=== PATIENT | male | born 1995 | race Two or more races ===

== ENCOUNTER 2020-01-17 09:07 | Day surgery (SDC) | payer SELFPAY ==
[2020-01-17] VITALS (10 sets, daily range): BP systolic 112–160; BP diastolic 68–99; PULSE 57–80; RESP 12–18; TEMP 36.1–37; O2SAT 97–100
--- NOTE | ~2020-01-17 | CT_ITS ---
EXAMINATION: CT abdomen pelvis w con DATE: 01/17/2020 09:53 INDICATION: Right lower quadrant abdominal pain. TECHNIQUE: Computed tomography (CT) of the abdomen and pelvis was performed with 100 mL Omnipaque 350 intravenous contrast. Automated exposure control and iterative reconstruction technique were employe d. The dose-length product was 448.65 mGy-cm. COMPARISON: None. FINDINGS: The visualized portions of the lung bases are clear without pneumonia or pleural effusion. The heart size is normal. No pericardial effusion. The liver, gallbladder, spleen, pancreas, adrenal glands, and kidneys are normal. The appendix is fluid-filled and dilated to 14 mm with wall thickenin g and surrounding fat stranding, consistent with appendicitis. There is a small volume of pelvic asci clarissa. There are no pathologically enlarged lymph nodes. There is mild lumbar spondylosis. IMPRESSION: 1. Acute appendicitis. 2. Small volume of pelvic ascites. Reviewed, dictated and finalized at location B. [employer]
[2020-01-17 09:26] LABS: Basophils Percent Auto 0.3 % (0.2-1.2); Eosinophils Absolute Auto 0.1 K/mm3 (0-0.3); Eosinophils Percent Auto 0.9 % (0-4.4); Hematocrit 45.5 % (42.0-52.0); Hemoglobin 15.8 g/dL (14.0-18.0); Immature Granulocyte Absolute 0.05 K/mm3 (0.00-0.031); Immature Granulocyte Percent A 0.3 % (0-0.5); Lymphocytes Absolute Auto 1.77 K/mm3 (0.9-3.2); Lymphocytes Percent Auto 12.1 % (18.3-44.2); Mean Corpuscular HGB Conc 34.7 g/dl (32-36); Mean Corpuscular Volume 86.3 fl (80-100); Mean Platelet Volume 10.4 fl (7.4-10.4); Monocytes Absolute Auto 0.7 K/mm3 (0.1-0.6); Monocytes Percent Auto 4.7 % (2.6-8.5); Neutrophils Percent Auto 81.7 % (45.5-73.1); Platelet Count Result 191 k/mm3 (150-375); Red Blood Count 5.27 M/mm3 (4.6-6.20); White Blood Count 14.6 K/mm3 (4.5-10.0)
[2020-01-17 09:38] LABS: Add Urine Microscopic? YES; Alanine Aminotransferase 33 U/L (4-50); Albumin Level 4.9 g/dL (3.5-5.1); Alkaline Phosphatase 64 U/L (38-126); Anion Gap 9 mmol/L (8-16); Appearance Urine Clear (Clear); Aspartate Amino Transferase 32 U/L (17-59); Bilirubin Urine Negative (Negative); Bilirubin,Total 0.8 mg/dL (0.2-1.3); Blood Urea Nitrogen 15 mg/dL (9-20); Blood Urine Negative (Negative); Calcium 9.6 mg/dL (8.4-10.2); Carbon Dioxide 30 mmol/L (22-30); Chloride 100 mmol/L (98-107); Color Urine Yellow (Yellow); Estimated CRCL calculation 122 ml/min; Estimated Glomerular Filt Rate > 60; Glucose 124 mg/dL (75-110); Glucose Urine UA Negative (Negative); Ketones Urine Trace mg/dL (Negative); Leukocyte Esterase Ur Negative LEU/UL (Negative); Lipase 20 U/L (23-300); Nitrate Urine Negative (Negative); Potassium 3.8 mmol/L (3.4-5.0); Protein Urine Negative (Negative); RBC Urine 0-2 /hpf (0-2); Sodium 139 mmol/L (137-145); Specific Grav Ur 1.019 (1.001-1.035); Urobilinogen Urine Negative mg/dL (<2.0); WBC Urine 0-3 /hpf
--- NOTE | 2020-01-17 09:46 | ED.ABDPAIN ---
HPI - Abdominal Pain General Chief Complaint: Abdominal Pain Stated Complaint: abd pain Time Seen by Provider: 01/17/20 09:29 Source: patient Mode of arrival: ambulatory Limitations: no limitations History of Present Illness HPI narrative: Patient presents with right lower quadrant pain that started last night associated with vomiting. The pain is intermittent, no aggravating or relieving factors, Patient denies any fever, chills, radiation of pain, history of abdominal surgery. MD elicited complaint: abdominal pain Related Data Home Medications Medication Instructions Recorded Confirmed No Home Medications 01/17/20 01/17/20 Allergies Allergy/AdvReac Type Severity Reaction Status Date / Time No Known Allergies Allergy Verified 01/17/20 09:24 Review of Systems Review of Systems: Narrative: CONSTITUTIONAL: Denies fever, chills, or sweats. EYES: Denies visual changes, redness, or discharge. ENT: Denies rhinorrhea, congestion, sore throat, or otalgia. CARDIOVASCULAR: Denies chest pain, palpitations, or edema. RESPIRATORY: Denies cough or dyspnea. GASTROINTESTINAL: Complaining of abdominal pain GENITOURINARY: Denies dysuria or hematuria. SKIN: Denies rash or itching. MUSCULOSKELETAL: Denies back pain, joint pain, or myalgia. NEUROLOGIC: Denies headache, numbness, or weakness. PSYCHIATRIC: Denies anxiety or depression. [facility] [place] Social History Social History Gender identity (if verbalized by the patient): Male Exam Narrative: Exam Narrative: General appearance: Well-developed, well-nourished, looks comfortable, significant other at the bedside Skin: Normal color Head: Normocephalic, nontraumatic Eyes: Clear conjunctiva ENT: Oropharynx normal, ears normal, nose normal Neck: Supple, nontender Chest and respiratory: Airway patent, no respiratory distress, no accessory muscle use Heart: Regular rate/rhythm Abdomen: Diffuse tenderness, guarding right lower quadrant Vascular: Normal peripheral pulses, normal capillary refill. 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, no gross motor deficit Course Course Emergency Course: Stable Consultations Consultation #1: DR LEMUS Date: 01/17/20 Time: 10:17 Vital Signs Vital signs: Vital Signs Temperature 36.1 C L 01/17/20 09:16 Pulse Rate 80 12/09/20 09:16 Respiratory Rate 18 01/17/20 09:16 Blood Pressure 160/84 H 01/17/20 09:16 Pulse Oximetry 99 01/17/20 09:16 Temperature 36.1 C L 01/17/20 09:16 Pulse Rate 80 01/17/20 09:16 Respiratory Rate 18 01/17/20 09:16 Blood Pressure 160/84 H 01/17/20 09:16 Pulse Oximetry 99 01/17/20 09:16 MDM - Abdominal Pain MDM Narrative Medical decision making narrative: Patient presents with right lower quadrant pain. Appendicitis, urinary tract infection, kidney stone are my concern. Labs, CT abdomen and pelvis with IV contrast, IV fluid ordered. Further plan to follow Differential Diagnosis Differential diagnosis: Likely abdominal pain, acute appendicitis, calculus of kidney, constipation and diverticulitis Lab Data Result diagrams: 01/17/20 09:20 01/17/20 09:20 Labs: Lab Results 01/17/20 01/17/20 01/17/20 Range/Units : 09:20 09:20 WBC 14.6 H (4.5-10.0) K/mm3 RBC 5.27 (4.6-6.20) M/mm3 Hgb 15.8 (14.0-18.0) g/dL Hct 45.5 (42.0-52.0) % MCV 86.3 (80-100) fl MCH 30.0 (26-34) pg MCHC 34.7 (32-36) g/dl RDW 12.0 (11.5-14.5) % Plt Count 191 (150-375) k/mm3 MPV 10.4 (7.4-10.4) fl Immature Gran % (Auto) 0.3 (0-0.5) %
[2020-01-17] MEDS: SODIUM CHLORIDE 0.9% IV 1,000 ML 999 ML IV CONT ×2 (09:54→10:49)
--- NOTE | 2020-01-17 10:27 | PM.SD ---
Same Day Admit/Disch: HPI History of Present Illness Chief complaint: abd pain Narrative: Venkat Adams is a 24 year old male who started having abdominal pain that moved to the right lower quadrant last night. He has had nausea and some vomiting. He came to the emergency room where he was noted to have tenderness in the right lower quadrant. He was afebrile [place] [id number] scan showed a 14 mm appendix with evidence of inflammatory changes and a small amount of pelvic ascites consistent with acute appendicitis. The patient is taken to surgery today for laparoscopic appendectomy for acute appendicitis. [facility] Past Medical History Medical History (Updated 01/17/20 @ 13:51 by Brando Gabriel MD) Overweight (BMI 25.0-29.9) Social History Social History Gender identity (if verbalized by the patient): Male Same Day Admit/Disch: Med Pre-admit Medications Home Medications Medication Instructions Recorded Confirmed Type hydrocodone-acetaminophen 1 - 2 tablet PO Q6H PRN #7 tablet 01/17/20 Rx ibuprofen 600 mg PO Q6H PRN #14 tablet 01/17/20 Rx Exam Const: General: comfortable, no acute distress, alert and awake HENMT: Head: normocephalic and atraumatic Mouth: Yes Normal oral and palatal mucosa present Eyes: Conjunctivae: conjunctivae normal Pupils: Equal, round and reactive pupils present EOM: EOMs intact bilaterally Neck: Neck: normal visual inspection, no lymphadenopathy and nontender Resp: Effort & Inspection: normal respiratory effort Auscultation: clear to auscultation bilaterally Cardio: Rate: regular rate Rhythm: regular rhythm Heart sounds: no gallops, no murmurs and no rubs GI: Inspection: normal to inspection and non-distended GI Palp: Yes Soft to palpation, Yes Tenderness to palpation present (GI) ( Diffusely tender but most tender on the right side particularly RLQ), Yes Guarding due to palpation present (GI), No Hepatomegaly present, No Splenomegaly present, No Hernia present and No Palpable mass present Auscultation: normal bowel sounds Skin: Lesions: no lesions Rashes: no rashes Neuro: General: no focal motor deficits and CN's II-XI intact bilaterally Cranial nerves: Yes Equal, round and reactive pupils present, Yes Bilaterally intact EOM present, Yes facial symmetry and Yes Midline tongue present Speech: normal speech Motor exam (neuro): 5/5 motor strength present throughout and Motor abnormalities not present Extrem: General: no clubbing, cyanosis or edema and edema Psych: Affect: normal affect Thought process: Normal thought process present Insight: Good insight present (Psych) DS: Data Data Completed and Pending Labs on day of discharge: Labs from last 24 hours 01/17/20 01/17/20 01/17/20 09:20 09:20 09:20 WBC 14.6 H RBC 5.27 Hgb 15.8 Hct 45.5 MCV 86.3 MCH 30.0 MCHC 34.7 RDW 12.0 Plt Count 191 MPV 10.4 Immature Gran % (Auto) 0.3 Neut % (Auto) 81.7 H Lymph % (Auto) 12.1 L [place] % (Auto) 4.7 Eos % (Auto) 0.9 Baso % (Auto) 0.3 Lymph # (Auto) 1.77 [place] # (Auto) 0.7 H Eos # (Auto) 0.1 Baso # (Auto) 0.0 Abs Immat Gran (auto) 0.05 H Absolute Neuts (auto) 12.0 H Absolute Nucleated RBC 0.0 Nucleated RBC % 0.0 Sodium 139 Potassium 3.8 Chloride 100 Carbon Dioxide 30 Anion Gap 9 BUN 15 Creatinine 0.80 Estim Creat Clear Calc 122 Estimated GFR > 60 Glucose 124 H Calcium 9.6 Total Bilirubin 0.8 AST 32 ALT 33 Alkaline Phosphatase 64 Total Protein 9.0 H Albumin 4.9 Lipase 20 L Urine Color Yellow Urine Appearance Clear Urine pH 8.0 Ur Specific [place] 1.019 Urine Protein Negative Urine Glucose (UA) Negative Urine Ketones Trace Ur Blood (Man) Negative Urine Nitrate Negative Urine Bilirubin Negative Urine Urobilinogen Neg
[2020-01-17] MEDS: ceFAZolin 2 GM/D5W 50 ML 2 GM/50 ML BAG IVPB (11:57)
--- NOTE | 2020-01-17 13:51 | WPDANESEPPF ---
Anes - Initial Pre Proc Eval Procedure: Operation Date: 01/17/20 15:00 Proposed Procedures p Laparoscopic Appendectomy - Cedric Puentes MD Date/Time: 01/17/20 13:51 Surgeon: Cedric Puentes MD Pre Op Diagnosis: abd pain Patient Data Age: 24 Gender: M Height: 1.73 m Weight: 82.1 kg Last Vital Signs Temp 37.0 C 01/17/20 13:48 Pulse 66 01/17/20 13:48 Resp 16 01/17/20 13:48 BP 138/69 01/17/20 13:48 Pulse Ox 100 01/17/20 13:48 Allergies Allergy/AdvReac Type Severity Reaction Status Date / Time No Known Allergies Allergy Verified 01/17/20 09:24 Home Medications Medication Instructions Recorded Confirmed Type No Home Medications 01/17/20 01/17/20 History Laboratory Tests 01/17/20 01/17/20 01/17/20 09:20 09:20 09:20 WBC 14.6 K/mm3 H K/mm3 (4.5-10.0) RBC 5.27 M/mm3 M/mm3 (4.6-6.20) Hgb 15.8 g/dL g/dL (14.0-18.0) Hct 45.5 % % (42.0-52.0) MCV 86.3 fl fl (80-100) MCH 30.0 pg pg (26-34) MCHC 34.7 g/dl g/dl (32-36) RDW 12.0 % % (11.5-14.5) Plt Count 191 k/mm3 k/mm3 (150-375) MPV 10.4 fl fl (7.4-10.4) Immature Gran % (Auto) 0.3 % % (0-0.5) Neut % (Auto) 81.7 % H % (45.5-73.1) Lymph % (Auto) 12.1 % L % (18.3-44.2) [place] % (Auto) 4.7 % % (2.6-8.5) Eos % (Auto) 0.9 % % (0-4.4) Baso % (Auto) 0.3 % % (0.2-1.2) Lymph # (Auto) 1.77 K/mm3 K/mm3 (0.9-3.2) [place] # (Auto) 0.7 K/mm3 H K/mm3 (0.1-0.6) Eos # (Auto) 0.1 K/mm3 K/mm3 (0-0.3) Baso # (Auto) 0.0 K/mm3 K/mm3 (0.0-0.1) Abs Immat Gran (auto) 0.05 K/mm3 H K/mm3 (0.00-0.031) Absolute Neuts (auto) 12.0 K/mm3 H K/mm3 (1.3-6.7) Absolute Nucleated RBC 0.0 K/mm3 K/mm3 (0.0-0.012) Nucleated RBC % 0.0 % % (0.0-0.2) Sodium 139 mmol/L mmol/L (137-145) Potassium 3.8 mmol/L mmol/L (3.4-5.0) Chloride 100 mmol/L mmol/L (98-107) Carbon Dioxide 30 mmol/L mmol/L (22-30) Anion Gap 9 mmol/L mmol/L (8-16) BUN 15 mg/dL mg/dL (9-20) Creatinine 0.80 mg/dL mg/dL (0.7-1.3) Estim Creat Clear Calc 122 ml/min ml/min Estimated GFR > 60 (59 - ) Glucose 124 mg/dL H mg/dL (75-110) Calcium 9.6 mg/dL mg/dL (8.4-10.2) Total Bilirubin 0.8 mg/dL mg/dL (0.2-1.3) AST 32 U/L U/L (17-59) ALT 33 U/L U/L (4-50) Alkaline Phosphatase 64 U/L U/L (38-126) Total Protein 9.0 g/dL H g/dL (6.3-8.2) Albumin 4.9 g/dL g/dL (3.5-5.1) Lipase 20 U/L L U/L (23-300) Urine Color Yellow (Yellow) Urine Appearance Clear (Clear) Urine pH 8.0 (5.0-9.0) Ur Specific [place] 1.019 (1.001-1.035) Urine Protein Negative mg/dL mg/dL (Negative) Urine Glucose (UA) Negative mg/dL mg/dL (Negative) Urine Ketones Trace mg/dL mg/dL (Negative) Ur Blood (Man) Negative (Negative) Urine Nitrate Negative (Negative) Urine Bilirubin Negative (Negative) Urine Urobilinogen Negative mg/dL mg/dL (<2.0) Leukocyte Esterase Rfl Negative JORGE/UL JORGE/UL (Negative) Urine RBC 0-2 /hpf /hpf (0-2) Urine WBC 0-3 /hpf /hpf Patient hx anesthesia problems: none Family hx anesthesia problems: none PMFSH Past Medical History Medical History (Updated 01/17/20 @ 13:51 by Brando Gabriel MD) Overweight (BMI 25.0-29.9) Social History Social History Gender identity (if verbalized by the patient): Male Anes - Eval Final PreProcedure Day of Procedure 01/17/20 13:51 Patient weight: overweight Heart: regular rate and
--- NOTE | 2020-01-17 15:03 | SUR.PREOP ---
Up to bathroom.
[2020-01-17] MEDS: KETOROLAC 15 MG/ML VIAL (*BKC) IV PUSH (15:07)
--- NOTE | 2020-01-17 15:59 | PM.PROC ---
Procedure Note - Detailed Date of procedure: 01/17/20 Pre-op diagnosis: abd pain acute appendicitis Post-op diagnosis: same Procedure performed: Laparoscopic appendectomy Description of procedure: The patient was taken to surgery and induced into general anesthesia. The abdomen was prepped and draped. Trocars were placed in the usual fashion using 0.5% Marcaine with epinephrine and applied Medical optical trocars. A 5 mm camera was used. The patient was placed in Trendelenburg with the right side elevated. The appendix was found and was elevated anteriorly. Dissection was carried out in the mesoappendix. The mesoappendix was dissectedand the appendiceal vessels cauterized for hemostasis. Eventually the base of the appendix was skeletonized. The appendix was ligated at its base with a Vicryl endo-loop. It was amputated just above the ligature and the mucosa of the appendiceal stump was cauterized. The appendix was immediately placed in an Endo-Catch bag and retrieved through the 10 11 left lower quadrant trocar site. We replaced the 10 11 trocar and reviewed the right lower quadrant and areas of dissection. All looked good with no evidence of bleeding or other problems. We evacuated CO2 and removed the trocar sleeves. Skin wounds were closed with subcuticular 4 O Monocryl skin suture. The wounds were dressed with Exofin surgical adhesive. The patient was awakened and taken to recovery in good condition. Sponge and needle counts were correct x2. Anesthesia: GETA and local (0.5% Marcaine with epinephrine) Surgeon: Cedric Puentes MD Care Program Director: Harry LEHMAN Estimated blood loss (mL): 5 Drains: No Packing: No Pathology: yes (Appendix) Complications: None Condition: stable Disposition: PACU Findings: Acute non perforated appendicitis
[2020-01-17] MEDS: LACTATED RINGERS 1,000 ML 30 ML IV CONT ×2 (16:00)
--- NOTE | 2020-01-17 16:03 | WPDHPUPDATE1 ---
History and Physical Update Update Date/Time: 01/17/20 16:03 History and Physical has been reviewed, including an updated exam of the patient. There are NO changes in the patient's condition. Risks, benefits, and alternatives have been discussed and questions answered. Patient agrees to proceed with procedure.
== END 2020-01-17 18:39 | disposition home or self-care (01) ==
LOC: ANHED 10:25 → ANHSURGERY 11:12
PROVIDERS: Emergency Provider Emergency Medicine; Visit Provider Surgery
PROC: 0DTJ4ZZ Resection of Appendix, Percutaneous Endoscopic Approach (ICD-10-PCS; CPT 44970; principal; 2020-01-17 15:00)
DX: K35.30 Acute appendicitis with localized peritonitis, without perforation or gangrene (principal)
CPT/HCPCS: 44970; 36415; 74177; 80053; 81001; 83690; 85025; 88304; 96361; 96365; 96367; 99285; A9270; J0330; J0690; J1100; J1170; J1885; J2250; J2405; J2543; J2704; J2710; J3010; J7030; J7120; Q9967

== ENCOUNTER 2021-04-09 21:12 | Emergency (ER) | payer SELFPAY ==
[2021-04-09 21:20] VITALS: BP 156/90; PULSE 88; RESP 16; TEMP 36.7; O2SAT 100
--- NOTE | 2021-04-09 21:38 | ED.GENADULT ---
HPI - General Adult General Chief complaint: Unspecified Stated complaint: sore throat x days Time Seen by Provider: 04/09/21 21:28 History of Present Illness HPI narrative: 25-year-old male presents to the emergency room with complaints of sore throat x2 days. patient denies fever. Patient denies sinus congestion, postnasal drip, cough, or rhinorrhea. Related Data Allergies Allergy/AdvReac Type Severity Reaction Status Date / Time No Known Allergies Allergy Verified 01/17/20 09:24 Review of Systems Review of Systems: CONSTITUTIONAL: Denies fever, chills, or sweats. EYES: Denies visual changes, redness, or discharge. ENT: Denies rhinorrhea, congestion, or otalgia. Reports sore throat CARDIOVASCULAR: Denies chest pain, palpitations, or edema. RESPIRATORY: Denies cough or dyspnea. GASTROINTESTINAL: Denies abdominal pain, nausea, vomiting, or diarrhea. GENITOURINARY: Denies dysuria or hematuria. SKIN: Denies rash or itching. MUSCULOSKELETAL: Denies back pain, joint pain, or myalgia. NEUROLOGIC: Denies headache, numbness, dizziness, or weakness. PSYCHIATRIC: Denies anxiety or depression. [facility] Past Medical History Medical History Overweight (BMI 25.0-29.9) Social History Social History Gender identity (if verbalized by the patient): Male Exam Narrative: GENERAL: Well-appearing, well-nourished, and in no acute distress. HEAD: Normocephalic, atraumatic. EYES: PERRLA and EOMI. ENT: Nares clear, no rhinorrhea or epistaxis. Mucous membranes moist. Oropharynx erythematous without tonsillar hypertrophy exudate or other lesions. Bilateral TMs pearly morales nonbulging NECK: Supple. No adenopathy or masses. No carotid bruits or JVD CHEST: Clear to auscultation. No respiratory distress. No wheezes rales or rhonchi HEART: Regular rate and rhythm. No murmur heard. Normal peripheral pulses. ABDOMEN: Soft, nontender, nondistended, normal active bowel sounds. EXTREMITIES: Normal range of motion. No edema. SKIN: Warm, dry, no rash. NEURO: No focal deficits. Alert and oriented x3. PSYCH: Normal mood and affect. Course Course Emergency Course: Patient reports complete resolution of pain following the Toradol and Decadron shots. Vital Signs Vital signs: Vital Signs Temperature 36.7 C 04/09/21 21:20 Pulse Rate 88 04/09/21 21:20 Respiratory Rate 16 04/09/21 21:20 Blood Pressure 156/90 H 04/09/21 21:20 Pulse Oximetry 100 04/09/21 21:20 Temperature 36.7 C 04/09/21 21:20 Pulse Rate 88 04/09/21 21:20 Respiratory Rate 16 04/09/21 21:20 Blood Pressure 156/90 H 04/09/21 21:20 Pulse Oximetry 100 04/09/21 21:20 Medical Decision Making MDM Narrative Medical decision making narrative: Rapid strep and mono test both negative. Patient reported complete resolution in pain following the Toradol and dexamethasone shots. Will treat for presumed strep pending throat culture. Told patient to discontinue antibiotics if throat culture comes back negative. Medical Records Medical records reviewed: Yes I reviewed the external patient's medical records. Vital Signs Vital Signs: Vital Signs Temperature 36.7 C 04/09/21 21:20 Pulse Rate 88 04/09/21 21:20 Respiratory Rate 16 04/09/21 21:20 Blood Pressure 156/90 H 04/09/21 21:20 Pulse Oximetry 100 04/09/21 21:20 Temperature 36.7 C 04/09/21 21:20 Pulse Rate 88 04/09/21 21:20 Respiratory Rate 16 04/09/21 21:20 Blood Pressure 156/90 H 04/09/21 21:20 Pulse Oximetry 100 04/09/21 21:20 Lab Data Lab results reviewed: Yes I reviewed the patient's lab results. Labs: Lab Results 04/09/21 Range/Units 21:47 Monoscreen Negative (Negative) Strep Screen Presumptive Negative *(Reference Range: Negative)* Discharge Plan Discharge Clinical Impression: P
[2021-04-09] MEDS: KETOROLAC (*BKC) 60 MG/2 ML VIAL IM (21:47)
[2021-04-09 22:43] LABS: Monoscreen Negative (Negative); Negative Monotest Control Negative (Negative); Positive Monotest Control Positive (Positive)
[2021-04-09 23:12] VITALS: PULSE 85; RESP 18; O2SAT 98
== END 2021-04-09 23:13 | disposition home or self-care (01) ==
PROVIDERS: Emergency Provider Nurse Practitioner Family
DX: J02.9 Acute pharyngitis, unspecified (principal); E66.3 Overweight; Z68.28 Body mass index [BMI] 28.0-28.9, adult
CPT/HCPCS: 36415; 86308; 87081; 87880; 96372; 99284; J1100; J1885

== ENCOUNTER 2021-12-23 08:59 | Emergency (ER) | payer SELFPAY ==
[2021-12-23] VITALS (9 sets, daily range): BP systolic 130–154; BP diastolic 87–108; PULSE 89–90; RESP 16–87; TEMP 37.1; O2SAT 97–100
[2021-12-23] MEDS: SODIUM CHLORIDE 0.9% IV 1,000 ML 999 ML IV CONT (10:05)
[2021-12-23] MEDS: ONDANSETRON INJ 4 MG/2 ML VIAL IV PUSH (10:06)
--- NOTE | 2021-12-23 10:18 | ED.NAVMDI ---
HPI - Nausea/Vomiting/Diarrhea General Chief complaint: Nausea/Vomiting/Diarrhea Stated complaint: n/v d/t hangover Time Seen by Provider: 12/23/21 09:33 History of Present Illness HPI Narrative: Patient is a 26-year-old male who presents ER with nausea and vomiting. Ongoing for 3 days. Associated with spinning dizziness that is worse when he changes positions. No chest pain or chest pressure. He has had a few loose stools. No known sick contacts. Reports mild sinus congestion and pressure in his ears. Related Data Allergies Allergy/AdvReac Type Severity Reaction Status Date / Time No Known Allergies Allergy Verified 01/17/20 09:24 Review of Systems Review of Systems: All systems reviewed & are unremarkable except as noted in HPI and below Constitutional: Constitutional: Denies chills, Denies fatigue and Denies fever(s) ENT: Reports dizziness, Denies nasal congestion and Denies sore throat Cardiovascular: Cardiovascular: Denies chest pain, Denies rapid heart rate and Denies radiating jaw, neck or arm pain Respiratory: Respiratory: Denies cough and Denies dyspnea Gastrointestinal: Gastrointestinal: Denies abdominal pain, Reports nausea and Reports vomiting Neurologic: Reports vertigo, Denies focal weakness and Denies numbness PMFSH Past Medical History Medical History (Updated 12/23/21 @ 12:26 by Michael Garza MD) Healthy adult male Overweight (BMI 25.0-29.9) Surgical History Surgical History (Updated 12/23/21 @ 12:24 by Michael Garza MD) History of appendectomy Social History Social History (Updated 12/23/21 @ 12:24 by Michael Garza MD) Smoking status: Never smoker Gender identity (if verbalized by the patient): Male Exam Narrative: GENERAL: Well-appearing, well-nourished, and in no acute distress. HEAD: Normocephalic, atraumatic. EYES: PERRL and EOMI. no nystagmus ENT: Mucous membranes moist. TMs normal bilaterally. CHEST: Clear to auscultation. No respiratory distress. HEART: Regular rate and rhythm. Normal peripheral pulses. ABDOMEN: Soft, nontender, nondistended. EXTREMITIES: Normal range of motion. No edema. SKIN: Warm, dry, no rash. NEURO: Alert and oriented x3. PSYCH: Normal mood and affect. Course Course Emergency Course: Patient feels markedly improved with fluids, meclizine, and Zofran. Discharge home with supportive care. Vital Signs Vital signs: Vital Signs Temperature 98.8 F 12/23/21 09:44 Pulse Rate 89 12/23/21 09:44 Respiratory Rate 87 H 12/23/21 09:44 Blood Pressure 154/108 H 12/23/21 09:44 Pulse Oximetry 99 12/23/21 09:44 Oxygen Delivery Room Air 12/23/21 09:44 Temperature 98.8 F 12/23/21 09:44 Pulse Rate 89 12/23/21 09:44 Respiratory Rate 87 H 12/23/21 09:44 Blood Pressure 154/108 H 12/23/21 09:44 Pulse Oximetry 99 12/23/21 09:44 Oxygen Delivery Room Air 12/23/21 09:44 MDM - Nausea/Vomiting/Diarrhea Lab Data Result diagrams: 12/23/21 10:33 12/23/21 10:33 Labs: Lab Results 12/23/21 12/23/21 Range/Units 10:33 10:33 WBC 8.2 (4.5-10.0) K/mm3 RBC 5.45 (4.6-6.20) M/mm3 Hgb 16.2 (14.0-18.0) g/dL Hct 46.7 (42.0-52.0) % MCV 85.7 (80-100) fl MCH 29.7 (26-34) pg MCHC 34.7 (32-36) g/dl RDW 12.1 (11.5-14.5) % Plt Count 228 (150-375) k/mm3 MPV 10.0 (7.4-10.4) fl Immature Gran % (Auto) 0.4 (0-0.5) % Neut % (Auto) 69.0 (45.5-73.1) % Lymph % (Auto) 20.4 (18.3-44.2) % [place] % (Auto) 7.2 (2.6-8.5) % Eos % (Auto) 2.1 (0-4.4) % Baso % (Auto) 0.9 (0.2-1.2) % Lymph # (Auto) 1.67 (0.9-3.2) K/mm3 [place] # (Auto) 0.6 (0.1-0.6) K/mm3 Eos # (Auto) 0.2 (0-0.3) K/mm3 Baso # (Auto) 0.1 (0.0-0.1) K/mm3 Abs Immat Gran (auto) 0.03 (0.00-0.031) K/mm3 Absolute Neuts (auto) 5.7 (1.3-6.7) K/mm3 Absolute Nucleated RBC 0.0 (0.0-0.012) K/mm3 Nucleated RBC % 0.0 (0.0-0.2) % Sodium 139 (137-145)
[2021-12-23] MEDS: MECLIZINE HCL 25 MG TABLET PO (10:41)
[2021-12-23 10:43] LABS: Basophils Absolute Auto 0.1 K/mm3 (0.0-0.1); Basophils Percent Auto 0.9 % (0.2-1.2); Eosinophils Absolute Auto 0.2 K/mm3 (0-0.3); Eosinophils Percent Auto 2.1 % (0-4.4); Hematocrit 46.7 % (42.0-52.0); Hemoglobin 16.2 g/dL (14.0-18.0); Immature Granulocyte Absolute 0.03 K/mm3 (0.00-0.031); Immature Granulocyte Percent A 0.4 % (0-0.5); Lymphocytes Absolute Auto 1.67 K/mm3 (0.9-3.2); Lymphocytes Percent Auto 20.4 % (18.3-44.2); Mean Corpuscular HGB Conc 34.7 g/dl (32-36); Mean Corpuscular Hemoglobin 29.7 pg (26-34); Mean Corpuscular Volume 85.7 fl (80-100); Monocytes Absolute Auto 0.6 K/mm3 (0.1-0.6); Monocytes Percent Auto 7.2 % (2.6-8.5); Neutrophils Absolute Auto 5.7 K/mm3 (1.3-6.7); Platelet Count Result 228 k/mm3 (150-375); Red Blood Count 5.45 M/mm3 (4.6-6.20); Red Cell Distribution Width 12.1 % (11.5-14.5); White Blood Count 8.2 K/mm3 (4.5-10.0)
[2021-12-23 10:47] LABS: Alanine Aminotransferase 30 U/L (6-50); Albumin Level 5.1 g/dL (3.5-5.1); Alkaline Phosphatase 66 U/L (38-126); Anion Gap 14 mmol/L (8-16); Aspartate Amino Transferase 31 U/L (17-59); Bilirubin,Total 1.3 mg/dL (0.2-1.3); Blood Urea Nitrogen 18 mg/dL (9-20); Calcium 9.1 mg/dL (8.4-10.2); Carbon Dioxide 27 mmol/L (22-30); Chloride 98 mmol/L (98-107); Estimated Glomerular Filt Rate > 60; Glucose 90 mg/dL (65-110); Lipase 25 U/L (23-300); Potassium 3.7 mmol/L (3.4-5.0); Sodium 139 mmol/L (137-145)
== END 2021-12-23 13:10 | disposition home or self-care (01) ==
PROVIDERS: Emergency Provider Emergency Medicine
DX: R42 Dizziness and giddiness (principal); E66.3 Overweight
CPT/HCPCS: 36415; 80053; 83690; 85025; 96361; 96374; 99284; A9270; J2405; J7030

== ENCOUNTER 2022-01-15 22:50 | Emergency (ER) | payer SELFPAY ==
[2022-01-15 22:52] VITALS: BP 153/70; PULSE 77; RESP 18; TEMP 36.6; O2SAT 100
--- NOTE | 2022-01-15 23:21 | PC.NURSE ---
pt sleeping on couch in waiting room.
--- NOTE | 2022-01-16 00:58 | ED.GENADULT ---
HPI - General Adult General Chief complaint: Back Pain/Injury Stated complaint: back pain Time Seen by Provider: 01/16/22 00:54 History of Present Illness HPI narrative: is a 26-year-old male with history of back spasms presenting ED with lower back pain. Patient said that he had 2 sneezes while in the shower and that triggered his back ache it it is a sharp stabbing pain in his right ear sacroiliac region that is sharp radiates down his leg to mid thigh, 10 out 10 intensity and constant. It is worse with movement. This is the same sensation he had when he had back spasms in the past. Patient denies history of IV drug abuse, fever, chills, cancer, trauma, urinary retention, bowel incontinence or saddle anesthesia. Related Data Allergies Allergy/AdvReac Type Severity Reaction Status Date / Time No Known Allergies Allergy Verified 01/17/20 09:24 Review of Systems Review of Systems: CONSTITUTIONAL: Denies night sweats. EYES: No eye pain ENT: Denies rhinorrhea CARDIOVASCULAR: Denies palpitations RESPIRATORY: Denies hemoptysis GASTROINTESTINAL: Denies hematemesis GENITOURINARY: Denies hematuria. SKIN: Denies rash MUSCULOSKELETAL: Denies myalgia. NEUROLOGIC: Denies weakness. PSYCHIATRIC: Denies delusions PMFSH Past Medical History Medical History (Updated 01/16/22 @ 02:00 by Harvey Walker MD) Back muscle spasm Healthy adult male Overweight (BMI 25.0-29.9) Surgical History Surgical History History of appendectomy Social History Social History (Updated 12/23/21 @ 12:24 by Michael Garza MD) Smoking status: Never smoker Gender identity (if verbalized by the patient): Male Exam Narrative: APPEARANCE: No apparent distress. Head: atraumatic. EYES: EOMI, NOSE: Atraumatic NECK: Trachea midline RESPIRATORY: No increased rate of breathing CARDIOVASCULAR: RRR, ABDOMINAL: Non-distended MUSCULOSKELETAl: No obvious deformities NEURO: Alert. Moving 4/4 extremities SKIN:: Warm, dry. Normal color PSYCHIATRIC: Normal affect Course Vital Signs Vital signs: Vital Signs Temperature 97.9 F 01/15/22 22:52 Pulse Rate 77 01/15/22 22:52 Respiratory Rate 18 01/15/22 22:52 Blood Pressure 153/70 H 01/15/22 22:52 Pulse Oximetry 100 01/15/22 22:52 Oxygen Delivery Room Air 01/15/22 22:52 Temperature 97.9 F 01/15/22 22:52 Pulse Rate 77 01/15/22 22:52 Respiratory Rate 18 01/15/22 22:52 Blood Pressure 153/70 H 01/15/22 22:52 Pulse Oximetry 100 01/15/22 22:52 Oxygen Delivery Room Air 01/15/22 22:52 Medical Decision Making MDM Narrative Medical decision making narrative: this is a 26-year-old presenting with back pain. He has no red flags on his history or physical. Will be treated Motrin Tylenol and Robaxin and lidocaine patch. Re-evaluated and still unable to walk due to pain. Will be given a shot of dexamethasone and a shot of Valium. Upon re-evaluation the patient's pain is improved. He is able to ambulate. He will be discharged with primary care follow-up. Vital Signs Vital Signs: Vital Signs Temperature 97.9 F 01/15/22 22:52 Pulse Rate 77 01/15/22 22:52 Respiratory Rate 18 01/15/22 22:52 Blood Pressure 153/70 H 01/15/22 22:52 Pulse Oximetry 100 01/15/22 22:52 Oxygen Delivery Room Air 01/15/22 22:52 Temperature 97.9 F 01/15/22 22:52 Pulse Rate 77 01/15/22 22:52 Respiratory Rate 18 01/15/22 22:52 Blood Pressure 153/70 H 01/15/22 22:52 Pulse Oximetry 100 01/15/22 22:52 Oxygen Delivery Room Air 01/15/22 22:52 Discharge Plan Discharge Clinical Impression: Back muscle spasm Patient Disposition: Home, Self-Care Condition: Stable Instructions: Antibiotic Form, Muscle Spasm (ED) Additional Instructions: please take Motrin Tylenol and Robaxin for your back spasms. Please follow the primary care physician. Please return emergency
[2022-01-16] MEDS: ACETAMINOPHEN 500 MG TABLET 1000 MG PO (01:17)
[2022-01-16] MEDS: methocarbamoL 750 MG TABLET 1500 MG PO (01:18)
[2022-01-16] MEDS: IBUPROFEN 400 MG TABLET 800 MG PO (01:18)
[2022-01-16] MEDS: LIDOCAINE 5% PATCH 1 PATCH TRANSDERM (01:18)
[2022-01-16] MEDS: diazePAM INJ (*CRX) 10 MG/2 ML SYRINGE 5 MG IM (03:12)
[2022-01-16] MEDS: HYDROmorphone HCL INJ (*CRX) 1 MG/ML SYR IM (04:14)
[2022-01-16 04:35] VITALS: BP 125/81; PULSE 57; RESP 16; O2SAT 98
== END 2022-01-16 04:47 | disposition home or self-care (01) ==
PROVIDERS: Emergency Provider Emergency Medicine
DX: M62.830 Muscle spasm of back (principal); E66.3 Overweight; Z68.25 Body mass index [BMI] 25.0-25.9, adult
CPT/HCPCS: 96372; 99284; A9270; J1100; J1170; J3360

== ENCOUNTER 2023-07-05 17:39 | Emergency (ER) | payer SELFPAY ==
--- NOTE | ~2023-07-05 | CT_ITS ---
EXAMINATION: CT abdomen pelvis w con DATE: 07/05/2023 19:52 INDICATION: Epigastric and left upper quadrant pain TECHNIQUE: Computed tomography (CT) of the abdomen and pelvis was performed with 100 cc Omnipaque 350 intravenous contrast. The dose-length product was 567.02 mGy-cm. Automated exposure control and iter ative reconstruction technique were employed. COMPARISON: CT dated 01/17/2020 FINDINGS: Stable chronically enlarged ileocolic lymph nodes, likely reactive. Lung bases are unremark able. Heart size normal. No significant pleural or pericardial effusion. Fatty infiltration of the li beto. Gallbladder is contracted. The spleen, pancreas, adrenal glands and kidneys are unremarkable. No free air or free fluid. Nonobstructive bowel gas pattern. No acute osseous abnormality. IMPRESSION: 1. No acute abdominal abnormality. Reviewed, dictated and finalized at location A.
[2023-07-05 17:40] VITALS: BP 126/74; PULSE 69; RESP 16; TEMP 36.5; O2SAT 98
--- NOTE | 2023-07-05 18:44 | ED.ABDPAIN ---
HPI - Abdominal Pain General Chief Complaint: Abdominal Pain <VIDYA Durant Last Filed: 07/06/23 02:47> Stated Complaint: abd pain <VIDYA Durant Last Filed: 07/06/23 02:47> Time Seen by Provider: 07/05/23 17:44 <VIDYA Durant Last Filed: 07/06/23 02:47> History of Present Illness HPI narrative: 28-year-old male, s/p appendectomy presents to emergency department for left upper quadrant abdominal pain for the past 3 days. Patient states his pain is worse with when he picks something up and after eating. States this morning he had aches, rodas, sausage and hash browns for breakfast and his pain became worse. He is also reporting generalized abdominal bloating and constipation. However he states he had a bowel movement this morning that was normal. he is reporting a sensation that he needs to belch, however nothing is coming up. He denies chest pain or shortness of breath, cough or congestion, dysuria or hematuria, nausea vomiting, diarrhea, fever. He does admit to drinking approximately 2 whiskey or tequila cocktails a day. Denies melena or hematochezia, hematemesis or coffee-ground emesis. Patient also reports a history of asthma. He is requesting a refill on his albuterol inhaler. <Charo Espinoza PA-C - Last Filed: 07/06/23 02:47> Related Data Allergies/Adverse Reactions: Allergies Allergy/AdvReac Type Severity Reaction Status Date / Time No Known Allergies Allergy Verified 01/17/20 09:24 <VIDYA Durant Last Filed: 07/06/23 02:47> Review of Systems Review of Systems: CONSTITUTIONAL: Denies fever, chills, or sweats. EYES: Denies visual changes, redness, or discharge. ENT: Denies rhinorrhea, congestion, sore throat, or otalgia. CARDIOVASCULAR: Denies chest pain, palpitations, or edema. RESPIRATORY: Denies cough or dyspnea. GASTROINTESTINAL: See HPI GENITOURINARY: Denies dysuria or hematuria. SKIN: Denies rash or itching. MUSCULOSKELETAL: Denies back pain, joint pain, or myalgia. NEUROLOGIC: Denies headache, numbness, or weakness. PSYCHIATRIC: Denies anxiety or depression. <Charo Espinoza PA-C - Last Filed: 07/06/23 02:47> PMFSH Past Medical History Medical History: Medical History Back muscle spasm Healthy adult male Overweight (BMI 25.0-29.9) <Charo Espinoza PA-C - Last Filed: 07/06/23 02:47> Surgical History Surgical History: Surgical History History of appendectomy <Charo Espinoza PA-C - Last Filed: 07/06/23 02:47> Social History Social History: Social History Smoking status: Never smoker Gender identity (if verbalized by the patient): Male <Charo Espinoza PA-C - Last Filed: 07/06/23 02:47> Exam Narrative: GENERAL: Well-appearing, well-nourished, and in no acute distress. HEAD: Normocephalic, atraumatic. EYES: PERRLA and EOMI. ENT: Nares clear, no rhinorrhea or epistaxis. Mucous membranes moist. NECK: Supple. CHEST: Clear to auscultation. No respiratory distress. HEART: Regular rate and rhythm. No murmur heard. Normal peripheral pulses. ABDOMEN: quiet bowel sounds. Abdomen soft with tenderness in the left upper quadrant /Epigastrium. No rebound, guarding or rigidity. negative Villalba's. No CVA tenderness. EXTREMITIES: Normal range of motion. No edema. SKIN: Warm, dry, no rash. NEURO: No focal deficits. Alert and oriented x3 <Charo Espinoza PA-C - Last Filed: 07/06/23 02:47> Course Course Emergency Course: For this patient encounter, I reviewed the [employer] or PA documentation, treatment plan, and medical decision making and I had [id number] time with this patient. I performed all aspects of the MDM as documented. <Omar Shankar, DO - Last Filed: 07/06/23 07:14> Vital Signs Vital sign
[2023-07-05] MEDS: BELLADONNA ALK/PHENOB ELIX 10 ML, MAG HYDROX/ALUMINUM HYD/SIMETH 30 ML, LIDOCAINE HCL 2... PO (19:06)
[2023-07-05] MEDS: FAMOTIDINE 20 MG/2 ML VIAL IV PUSH (19:13)
[2023-07-05 19:16] LABS: Basophils Absolute Auto 0.1 K/mm3 (0.0-0.1); Basophils Percent Auto 1.2 % (0.2-1.2); Eosinophils Absolute Auto 0.5 K/mm3 (0-0.3); Eosinophils Percent Auto 8.8 % (0-4.4); Hematocrit 44.9 % (42.0-52.0); Immature Granulocyte Absolute 0.03 K/mm3 (0.00-0.031); Immature Granulocyte Percent A 0.6 % (0-0.5); Lymphocytes Absolute Auto 1.75 K/mm3 (0.9-3.2); Lymphocytes Percent Auto 34.3 % (18.3-44.2); Mean Corpuscular HGB Conc 33.4 g/dl (32-36); Mean Corpuscular Hemoglobin 30.2 pg (26-34); Mean Corpuscular Volume 90.5 fl (80-100); Mean Platelet Volume 10.4 fl (7.4-10.4); Monocytes Absolute Auto 0.6 K/mm3 (0.1-0.6); Monocytes Percent Auto 11.4 % (2.6-8.5); Neutrophils Absolute Auto 2.2 K/mm3 (1.3-6.7); Neutrophils Percent Auto 43.7 % (45.5-73.1); Platelet Count Result 191 k/mm3 (150-375); Red Blood Count 4.96 M/mm3 (4.6-6.20); Red Cell Distribution Width 12.8 % (11.5-14.5); White Blood Count 5.1 K/mm3 (4.5-10.0)
[2023-07-05 19:28] LABS: Alanine Aminotransferase 540 U/L (6-50); Albumin Level 4.5 g/dL (3.5-5.1); Alkaline Phosphatase 85 U/L (38-126); Anion Gap 4 mmol/L (4-12); Aspartate Amino Transferase 349 U/L (17-59); Bilirubin,Total 0.5 mg/dL (0.2-1.3); Blood Urea Nitrogen 12 mg/dL (9-20); Calcium 8.7 mg/dL (8.4-10.2); Carbon Dioxide 32 mmol/L (22-30); Chloride 103 mmol/L (98-107); Estimated CRCL calculation 118 ml/min; Estimated Glomerular Filt Rate > 60; Glucose 102 mg/dL (65-110); Lipase 38 U/L (23-300); Sodium 139 mmol/L (137-145)
[2023-07-05 20:19] LABS: Appearance Urine Clear (Clear); Bilirubin Urine Negative (Negative); Blood Urine Negative (Negative); Color Urine Yellow (Yellow); Glucose Urine UA Negative (Negative); Ketones Urine Negative (Negative); Leukocyte Esterase Ur Negative LEU/UL (Negative); Nitrate Urine Negative (Negative); Protein Urine Negative (Negative); Specific Grav Ur 1.019 (1.001-1.035); Urobilinogen Urine 0.2 mg/dL (<2.0)
[2023-07-05 20:35] LABS: Add Urine Microscopic? NO
[2023-07-05 21:18] VITALS: BP 137/62; PULSE 75; RESP 18; TEMP 36.7; O2SAT 100
[2023-07-05 21:50] LABS: Hepatitis B Surface Antigen Negative (Negative)
[2023-07-05 21:56] LABS: HAV RESULT Negative (Negative); Hepatitis B Core IgM Result Negative (Negative)
[2023-07-05 22:08] LABS: Hepatitis C Virus Antibody Negative (Negative)
[2023-07-14 08:09] LABS: Hepatitis E Antibodies IgG NOT DETECTED
== END 2023-07-05 21:20 | disposition home or self-care (01) ==
PROVIDERS: Emergency Provider Physician Assistant
DX: R10.13 Epigastric pain (principal); R74.01 Elevation of levels of liver transaminase levels; E66.3 Overweight; Z68.28 Body mass index [BMI] 28.0-28.9, adult
CPT/HCPCS: 36415; 74177; 80053; 80074; 81003; 83690; 85025; 86790; 96374; 99284; A9270; Q9967

== ENCOUNTER 2024-02-23 12:26 | Emergency (ER) | payer SELFPAY ==
--- NOTE | ~2024-02-23 | CT_ITS ---
EXAMINATION: CT lumbar spine wo con DATE: 02/23/2024 13:08 INDICATION: Lumbar and right-sided sacroiliac pain. Sciatica. TECHNIQUE: Computed tomography (CT) of the lumbar spine was performed without intravenous contrast. A utomated exposure control and iterative reconstruction technique were employed. The dose-length produ ct was 430.29 mGy-cm. COMPARISON: CT dated 07/05/2023 FINDINGS: Alignment is normal. Minimal likely physiologic anterior wedging at T12. Lumbar vertebral body height s are normal. No fracture. Mild disc height loss at T11-T12, L4-5 and L5-S1. Paravertebral soft tissu es are unremarkable. Mild osteoarthritis at the bilateral sacralized joints with vacuum phenomena wit hin subarticular cystlike changes at the iliac side of the right sacroiliac joint. The following disc levels are specifically discussed: T11-T12 through L3-L4: There is minimal to moderate bilateral facet joint osteoarthritis. There is no neural foraminal stenosis. There is no central canal stenosis. L4-L5: Disc is mildly bulging with unchanged large central disc extrusion with disc material extendin g a few mm cephalad and caudal to the level of the endplates. There is mild bilateral facet joint ost eoarthritis. There is mild bilateral neural foraminal stenosis. There is mild central canal stenosis with narrowing of the left and right lateral recesses. L5-S1: Disc is bulging. There is mild bilateral facet joint osteoarthritis. There is mild bilateral, left greater than right neural foraminal stenosis. There is mild central canal stenosis as well as du ring of the left lateral recess. IMPRESSION: 1. Mild lumbar spondylosis most notable for prominent disc extrusion at L4-L5. Reviewed, dictated and finalized at location B. EL DIRECTOR
[2024-02-23 12:28] VITALS: BP 137/100; PULSE 84; RESP 18; TEMP 36.6; O2SAT 95
--- NOTE | 2024-02-23 12:37 | ED_ITS ---
HPI - Back Pain/Injury General Chief Complaint: Back Pain/Injury Stated Complaint: back pain after coughing Time Seen by Provider: 02/23/24 13:31 Focused HPI: 28-year-old male with history of known sciatica presents to emergency department for sciatica flare. Patient states this morning he coughed any felt a pop in his right lower back and since then has been having increasing pain. States the pain travels down the right leg intermittently. Pain is with the flexion of the waist. No bowel or bladder incontinence, urinary retention, saddle anesthesia. Denies IV drug use, procedures or surgeries to the back, intentional weight loss, history of cancer, fever GENERAL: Well-appearing, well-nourished, and in no acute distress. HEAD: Normocephalic, atraumatic. CHEST: Clear to auscultation. ?No respiratory distress. BACK: Very minimal lumbar spinous tenderness, more tenderness notably to the right paraspinous muscles and overlying white SI. Strength 5/5 in BLE. No saddle anesthesia. HEART: Regular rate and rhythm.? NEURO: ?Alert and oriented x3. Patient screened in triage and initial orders placed.? ?Additional care and disposition to be based upon?diagnostic testing and treatment. History of Present Illness HPI Narrative: Agree with the above note. Denies dysuria, hematuria, abdominal pain. Related Data Allergies Allergy/AdvReac Type Severity Reaction Status Date / Time No Known Allergies Allergy Verified 01/17/20 09:24 Review of Systems Review of Systems: All systems reviewed & are unremarkable except as noted in HPI and below PMFSH Past Medical History Medical History Back muscle spasm Healthy adult male Overweight (BMI 25.0-29.9) Surgical History Surgical History History of appendectomy Social History Social History Smoking status: Never smoker Gender identity (if verbalized by the patient): Male Exam Narrative: GENERAL: Well-appearing, well-nourished, and in no acute distress. HEAD: Normocephalic, atraumatic. EYES: EOMI. ENT: Nares clear, no rhinorrhea or epistaxis. Mucous membranes moist. NECK: Supple. BACK: very minimal tenderness to the lumbar spine, tenderness to the right paraspinous muscles extending over the right SI with no overlying skin changes, crepitus or deformity. No saddle anesthesia. Negative straight leg raise bilaterally. Strength 5/5 in BLE. CHEST: Clear to auscultation. No respiratory distress. HEART: Regular rate and rhythm. No murmur heard. Normal peripheral pulses. ABDOMEN: Soft, nontender, nondistended, normal active bowel sounds. EXTREMITIES: Normal range of motion. No edema. SKIN: Warm, dry, no rash. NEURO: No focal deficits. Alert and oriented x3 Course Vital Signs Vital signs: Vital Signs Temperature 97.9 F 02/23/24 12:28 Pulse Rate 84 02/23/24 12:28 Respiratory Rate 18 02/23/24 12:28 Blood Pressure 137/100 H 02/23/24 12:28 Pulse Oximetry 95 02/23/24 12:28 Oxygen Delivery Room Air 02/23/24 12:28 Temperature 97.9 F 02/23/24 12:28 Pulse Rate 84 02/23/24 12:28 Respiratory Rate 18 02/23/24 12:28 Blood Pressure 137/100 H 02/23/24 12:28 Pulse Oximetry 95 02/23/24 12:28 Oxygen Delivery Room Air 02/23/24 12:28 MDM - Back Pain/Injury MDM Narrative Medical decision making narrative: 28-year-old male with history of known sciatica presents emergency department for sciatica flare. Triage vitals with elevated blood pressure 137/100, otherwise unremarkable. Patient is afebrile and nontoxic appearing. Exam significant for tenderness minimally to the lumbar spine, more notably over the right paraspinous muscles extending over the right SI. No overlying skin changes. No red flag back pain signs. No evidence of cord compression or cauda equina. He is neurovascularly intact and ambulatory in the ED without ataxia or difficulty. CT lumbar spine shows mild lumbar spondylosis most notable for prominent disc extrusion at L4-L5. Patient was updated on workup. He received IM Toradol, lidocaine patch and Flexeril with improvement. Will send ibuprofen, Toradol lidocaine patches to the pharmacy. Advised follow-up with PCP. Return precautions discussed. He is agreeable with the plan verbalized understanding. Discharged in stable condition. Discharge Plan Discharge Clinical Impression: Lumbar radiculopathy, Intervertebral disc extrusion Patient Disposition: Home, Self-Care Condition: Stable Instructions: Antibiotic Form, Acute Low Back Pain (ED), Lumbar Radiculopathy (ED), Lower Back Exercises (ED) Additional Instructions: Take the medications as directed as needed for pain. Follow-up with your primary care provider. Return to the emergency department if you develop a fever, abdominal pain, numbness in your groin, you lose control of her bowel or bladder, or other concerning symptoms. Patient Language: Syriac Prescriptions: New cyclobenzaprine 10 mg tablet 10 mg PO TID PRN (Reason: muscle spasm) Qty: 14 0RF ibuprofen 800 mg tablet 800 mg PO TID PRN (Reason: pain) Qty: 20 0RF lidocaine 5 % adhesive patch,medicated 1 patch topical DAILY Qty: 15 0RF Rx Instructions: leave on most painful area for up to 12 hrs. do not use more than 1 patch in a 24-hour period. No Action hydrocodone-acetaminophen 5-325 mg tablet 1 - 2 tablet PO Q6H PRN (Reason: pain) Qty: 7 0RF ibuprofen 600 mg tablet 600 mg PO Q6H PRN (Reason: pain) Qty: 14 0RF prednisone 20 mg tablet 40 mg PO DAILY Qty: 10 0RF amoxicillin-pot clavulanate 875-125 mg tablet 1 tablet PO Q12H Qty: 20 0RF meclizine 12.5 mg tablet 12.5 mg PO TID PRN (Reason: dizziness) Qty: 14 0RF ibuprofen 800 mg tablet 800 mg PO TID PRN (Reason: pain) 7 Days Qty: 21 0RF acetaminophen 500 mg tablet 1,000 mg PO TID PRN (Reason: xochitl) 7 Days Qty: 42 0RF methocarbamol 750 mg tablet 1,500 mg PO TID Qty: 30 0RF albuterol sulfate 90 mcg/actuation HFA aerosol inhaler 1 inh inhalation QID PRN (Reason: shortness of breath or wheezing) Qty: 6.7 0RF famotidine 20 mg tablet 20 mg PO DAILY Qty: 30 0RF Follow-up/Referrals: Brayan Jain MD [Physician] - UNKNOWN,DOCTOR [Primary Care Provider] -
[2024-02-23] MEDS: LIDOCAINE 5% PATCH 1 PATCH TRANSDERM (12:57)
[2024-02-23] MEDS: KETOROLAC 30 MG/ML VIAL (*BKC) IM (12:58)
[2024-02-23] MEDS: CYCLOBENZAPRINE HCL 10 MG TABLET PO (12:58)
== END 2024-02-23 13:50 | disposition home or self-care (01) ==
LOC: ANHED 13:52
PROVIDERS: Emergency Provider Physician Assistant
DX: M51.16 Intervertebral disc disorders with radiculopathy, lumbar region (principal)
CPT/HCPCS: 72131; 96372; 99283; A9270; J1885